=== PATIENT | female | born 1975 | race Two or more races ===

== ENCOUNTER 2021-07-20 10:19 | Emergency (ER) | payer MEDICAID ==
[~2021-07-20] VITALS: Ht 157.5 cm; Wt 68.0 kg
--- NOTE | 2021-07-20 10:50 | NUR ---
46 years old female walking to er c/o right lower quadrant pain radiate to right lower back associated with nausea no vomiting, awaiting for er Md evaluation.
[2021-07-20] MEDS ORDERED: IV NS 0.9% 1,000 ML BAG IV ONE ×2 (11:30→16:00)
[2021-07-20] MEDS ORDERED: ONDANSETRON HCL/PF 4 MG/2 ML VIAL IVP ONE (11:30)
[2021-07-20] MEDS ORDERED: KETOROLAC TROMETHAMINE INJ 30 MG/ML VIAL IV ONE (11:30)
[2021-07-20 12:01] LABS: BILIRUBIN,URINE Negative (NEGATIVE); LEUKOCYTE ESTERASE ,URINE Negative (NEGATIVE); NITRITE, URINE Negative (NEGATIVE); PH,URINE 6.5 (5.0-8.0); PROTEIN,URINE Negative (NEGATIVE); UGLUCOSE Negative (NEGATIVE); UROBILINOGEN,URINE 0.2 EU/dL (0.2)
[2021-07-20] MEDS ORDERED: ONDANSETRON HCL/PF 4 MG/2 ML VIAL ONE (12:01)
[2021-07-20] MEDS ORDERED: KETOROLAC TROMETHAMINE 15 MG/ML VIAL ONE (12:01)
[2021-07-20 12:04] LABS: COLOR,URINE STRAW (YELLOW)
[2021-07-20 12:21] LABS: BASOPHILS # (AUTO) 0.1 K/uL (0.0-0.2); BASOPHILS % (AUTO) 0.9 % (0.0-2.0); EOSINOPHILS % (AUTO) 1.4 % (0.0-6.0); HEMATOCRIT 39 % (33-45); LYMPHOCYTES # (AUTO) 2.2 K/uL (0.8-4.8); LYMPHOCYTES % (AUTO) 31.8 % (20.0-44.0); MEAN CORPUSCULAR HGB CONC 33 g/dl (31.0-36.0); MEAN CORPUSCULAR VOLUME 92 fL (82-100); MONOCYTES # (AUTO) 0.6 K/uL (0.1-1.30); MONOCYTES % (AUTO) 9.1 % (2.0-12.0); NEUTROPHILS # (AUTO) 3.9 K/uL (1.8-8.9); NEUTROPHILS % (AUTO) 56.8 % (43.0-81.0); PLATELET COUNT (AUTO) 387 K/uL (150-450); RED BLOOD CELL COUNT(AUTO) 4.26 MIL/uL (4.0-5.2); WHITE BLOOD COUNT (AUTO) 6.8 K/uL (4.3-11.0)
[2021-07-20 12:30] LABS: BACTERIA,URINE Few /HPF (None Seen); RBC,URINE 0-3 /HPF (0-2); SQUAMOUS EPITHELIAL CELL,UR Moderate /HPF (None Seen); WBC,URINE 0-2 /HPF (0-3)
[2021-07-20 12:34] LABS: CALCIUM, SERUM 8.5 mg/dL (8.5-10.1); CREATININE 0.6 mg/dL (0.6-1.3); POTASSIUM 4.2 mmol/L (3.5-5.1)
[2021-07-20 12:38] LABS: ALBUMIN 3.5 g/dL (3.4-5.0); BILIRUBIN,DIRECT 0.1 mg/dL (0.0-0.2); BILIRUBIN,TOTAL 0.2 mg/dL (0.2-1.0); TOTAL PROTEIN, SERUM 7.7 g/dL (6.4-8.2)
[2021-07-20] MEDS ORDERED: MORPHINE SULFATE INJ 2 MG/ML DISP.SYRIN IV ONE (13:00)
[2021-07-20] MEDS ORDERED: MORPHINE SULFATE INJ 4 MG/ML DISP.SYRIN ONE (13:08)
--- NOTE | 2021-07-20 13:14 | NUR ---
patient reassess c/o pain 07/16, md notified new order morphine ivp given as prescribed will continue to monitor.
--- NOTE | 2021-07-20 14:28 | NUR ---
patient reassess, Dr doshi at bedside talking to patient/family.
[2021-07-20] MEDS ORDERED: ACETAMINOPHEN 325 MG TABLET PO ONE (14:30)
[2021-07-20] MEDS ORDERED: IBUPROFEN 600 MG TABLET PO ONE (14:30)
[2021-07-20] MEDS ORDERED: oxyCODONE HCL SR 10MG TAB.SR.12H PO SCH (14:30)
[2021-07-20] MEDS ORDERED: ACETAMINOPHEN ES 500 MG TABLET ONE (14:38)
[2021-07-20] MEDS ORDERED: IBUPROFEN 600 MG TABLET ONE (14:38)
[2021-07-20] MEDS ORDERED: oxyCODONE IR immediate release 5 MG ONE ×2 (14:46→14:47)
--- NOTE | 2021-07-20 15:29 | NUR ---
PATIENT AWAITING FOR REPEAT LIPASE.
--- NOTE | 2021-07-20 17:51 | NUR ---
amylase/lipase redraw result in progress.
[2021-07-20] MEDS ORDERED: OXYC-128 PO (18:08)
--- NOTE | 2021-07-20 18:18 | NUR ---
Patient discharged to home in stable condition. Written and verbal after care instructions given. Patient verbalizes understanding of instruction.IV removed. Catheter intact and site benign. Pressure and 4x4 applied to site. No bleeding noted.
[2021-07-20 18:19] VITALS: BP 124/80
== END 2021-07-20 18:20 | disposition home or self-care (01) ==
LOC: ER 10:28
DX: R10.31 Right lower quadrant pain (principal); E78.5 Hyperlipidemia, unspecified
CPT/HCPCS: 36415; 74176; 76856; 80048; 80076; 81001; 82150; 83690 ×4; 84703; 85025; 96361; 96374; 96375; 99285; J1885; J2270; J2405; J7030 ×2